=== PATIENT | female | born 1925 | race Caucasian/White ===

== ENCOUNTER 2017-01-28 12:58 | Emergency (ER) | payer OTHER | END 2017-01-28 18:40 | disposition home or self-care (01) | LOC: ER 12:58 | DX: I63.9 Cerebral infarction, unspecified (principal); R01.1 Cardiac murmur, unspecified; E03.9 Hypothyroidism, unspecified; Z90.49 Acquired absence of other specified parts of digestive tract | CPT/HCPCS: 36415 ==